=== PATIENT | male | born 1960 | race Caucasian/White ===

== ENCOUNTER 2021-08-26 21:42 | Emergency (ER) | payer SELFPAY ==
[2021-08-26 22:07] VITALS: BP 142/82; PULSE 96; RESP 18; TEMP 36.8; O2SAT 98
--- NOTE | 2021-08-27 00:40 | PC.NURSE ---
0029- Pt walked up to intake desk, when asked if he needed help pt stated yeah, I wanna leave. when asked what his name was, pt ripped his pt bracelet off and thew it at the RN and walked out of the ER with steady gait and no s/s of distress noted.
== END 2021-08-27 00:58 | disposition left against medical advice (07) ==
PROVIDERS: PCP Internal Medicine
DX: Z53.21 Procedure and treatment not carried out due to patient leaving prior to being seen by health care provider (principal)
CPT/HCPCS: 99199